=== PATIENT | male | born 1970 | race Caucasian/White ===

== ENCOUNTER 2017-02-15 20:09 | Emergency (ER) | payer OTHER ==
[2017-02-15 21:33] LABS: HEMOGLOBIN 11.5 gm/dl (14.0-17.5); RED BLOOD COUNT 4.11 M/UL (4.20-5.50); WHITE BLOOD COUNT 8.9 K/UL (4.5-11.0)
[2017-02-15 21:51] LABS: BUN/CREATININE RATIO 17 (0-10)
== END 2017-02-16 04:30 | disposition short-term general hospital (02) ==
LOC: ER1 20:09
PROVIDERS: Family Medicine
DX: T42.6X2A Poisoning by other antiepileptic and sedative-hypnotic drugs, intentional self-harm, initial encounter (principal); F32.9 Major depressive disorder, single episode, unspecified; F17.200 Nicotine dependence, unspecified, uncomplicated; Z88.8 Allergy status to other drugs, medicaments and biological substances; Z79.899 Other long term (current) drug therapy
CPT/HCPCS: 36415; 80053; 80307; 81001; 85025; 93005; 99285; G0480